=== PATIENT | male | born 1980 | race Caucasian/White ===

== ENCOUNTER 2023-09-09 22:53 | Emergency (ER) | payer OTHER, SELFPAY ==
[2023-09-09 23:07] VITALS: BP 150/101; PULSE 78; RESP 18; TEMP 37.3; O2SAT 98; BMI 35.0
--- NOTE | 2023-09-10 | CT_ITS ---
Patient: LIMA PERES Facility:?[facility] Patient ID:?[id number] Site Patient ID:?[id number]. Site :?[id number] Study:?CT-Abdomen/Pelvis with 100cc abidnv113 contrast-09/10/2023 3:53:57 AM Ordering Physician:Kayla Falcon Final Report: INDICATION: Abdominal pain. Hernia. COMPARISON: None TECHNIQUE: CT examination of the abdomen and pelvis was performed following the uneventful intravenous administration of 100 cc of Isovue 370. Thin section axial images were obtained from the lung bases through the pubic symphysis. Oral contrast was not administered. Please note that all CT scans at this facility use dose modulation, iterative reconstruction, and/or weight-based dosing when appropriate to reduce radiation dose to as low as reasonably achievable. FINDINGS: LUNG BASES: The lung bases as visualized appear normal.The heart size is normal at the lung bases. LIVER/BILIARY SYSTEM:The liver is normal in size and configuration. There is no focal mass and there is no intra- or extra hepatic biliary ductal dilatation.Hepatic steatosis. Contracted but otherwise unremarkable appearing gallbladder ADRENALS: Normal KIDNEYS, URETERS and BLADDER:The kidneys appear normal. No visible mass, calculus or hydronephrosis. The ureters and bladder as visualized appear normal. SPLEEN:Normal appearance. PANCREAS: Appears normal. RETROPERITONEUM and MESENTERY: There is no mass, adenopathy or aortic aneurysm. GASTROINTESTINAL SYSTEM: There is no evidence of diverticulitis, colitis, mechanical obstruction, or appendicitis. The small bowel as visualized appears normal.A few scattered diverticular noted PELVIS: No mass, adenopathy or free fluid. OSSEOUS STRUCTURES and ABDOMINAL WALL: There is an age-appropriate appearance of the osseous structures.There is a tiny fat containing umbilical hernia. There is a ventral hernia to the right of the midline few centimeters above the umbilicus. This contains fat and measures about 6 centimeters in diameter. The fat in this area appears to be inflamed. The defect in the anterior abdominal wall measures about 2.3 centimeters OTHER: No free fluid or free air. IMPRESSION: 1. There is a ventral hernia to the right of the midline in a few centimeters above the umbilicus containing fat only. This appears to be inflamed. The hernia sac measures about 6 centimeters in diameter. The defect in the anterior abdominal wall measures 2.3 centimeters. There is also a very small fat containing umbilical hernia which does not appear to be inflamed. 2. Other incidental chronic appearing findings as discussed above Please note that all CT scans at this facility use dose modulation, iterative reconstruction, and/or weight-based dosing when appropriate to reduce radiation dose to as low as reasonably achievable. Dictated by Matias Hawthorne MD @ 09/10/2023 4:30:48 AM Signed by:?Matias Hawthorne MD @09/10/2023 4:30:48 AM (Electronic Signature)
--- NOTE | 2023-09-10 01:30 | ED.ABDPAIN ---
HPI - Abdominal Pain General Date Seen: 09/10/23 <Dion Carmen MD - Last Filed: 09/10/23 01:33> Chief Complaint: Abdominal Pain <Dion Carmen MD - Last Filed: 09/10/23 01:33> Stated Complaint: Hernia on abdomen, pain <Dion Carmen MD - Last Filed: 09/10/23 01:33> Time Seen by Provider: 09/10/23 01:30 <Dion Carmen MD - Last Filed: 09/10/23 01:33> Source: patient <Dion Carmen MD - Last Filed: 09/10/23 01:33> Mode of arrival: ambulatory <Dion Carmen MD - Last Filed: 09/10/23 01:33> Limitations: no limitations <Dion Carmen MD - Last Filed: 09/10/23 01:33> History of Present Illness HPI narrative: Patient is a 43-year-old gentleman presents here with the a bulge in his abdomen, he has a known hernia just above his umbilicus and over the last couple days it has become more sore, he is worried it may be incarcerated, but he can not push it in fine, couple days previous to this he has been having problems with nausea, and a couple episodes of vomiting, and since then his hernias been more sore. He had a previous 1 fixed, he actually has an appointment to see next week for this. He was able to eat earlier today, a little bit less, he is passing gas, no fevers no chills. <Dion Carmen MD - Last Filed: 09/10/23 01:33> MD elicited complaint: abdominal pain <Dion Carmen MD - Last Filed: 09/10/23 01:33> Related Data Home Medications: Previous Rx's Medication Instructions Recorded citalopram 20 mg tablet (Celexa) 20 mg PO QDAY #90 tabs 07/31/23 losartan 25 mg tablet 25 mg PO QDAY 90 days #90 tabs 08/19/23 <Dion Carmen MD - Last Filed: 09/10/23 01:33> Allergies/Adverse Reactions: Allergies Allergy/AdvReac Type Severity Reaction Status Date / Time No Known Allergies Allergy Verified 05/30/23 08:22 <Dion Carmen MD - Last Filed: 09/10/23 01:33> Review of Systems Status of ROS Reports: 10 or more systems reviewed and unremarkable except as noted in History and below <Dion Carmen MD - Last Filed: 09/10/23 01:33> PFSH PFSH Medical History: Medical History History of alcohol dependence ?F10.21 - Alcohol dependence, in remission (ICD-10) <Dion Carmen MD - Last Filed: 09/10/23 01:33> Surgical History: Surgical History History of hernia repair ?Z98.890 - Other specified postprocedural states (ICD-10) ?Z87.19 - Personal history of other diseases of the digestive system (ICD-10) <Dion Carmen MD - Last Filed: 09/10/23 01:33> Family History: Family History Father Alcohol dependence Mother Anxiety disorder Colonic polyp Depression Maternal Grandfather Bladder cancer Colonic polyp Maternal Grandmother Colon cancer <Dion Carmen MD - Last Filed: 09/10/23 01:33> Social History: Social History Narrative: Tobacco chew use Smoking Status: Current some day smoker Little interest or pleasure in doing things: more than half the days Feeling down, depressed, or hopeless: more than half the days <Dion Carmen MD - Last Filed: 09/10/23 01:33> Exam Narrative: Exam Narrative: On examination he is in no apparent distress very nice gentleman, 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 Bowel sounds are normal there is no organomegaly <Dion Carmen MD - Last Filed: 09/10/23 01:33> Const: Vital Signs, click to edit/add: Vital Signs - 24 hr 09/09/23 23:07 Temperature 99.2 F Pulse Rate [Pulse Oximeter] 78 Respiratory Rate 18 Blood Pressure [Ri ght Upper Arm] 150/101 H Pulse Oximetry 98 Oxygen Delivery Me thod Room Air <Dion Carmen MD - Last Filed: 09/10/23 01:33> Vital Signs, click to edit/add: Vital Signs - 24 hr 09/09/23 23:07 Temperature 99.2 F Pulse Rate [Pulse Oximeter] 78 Respiratory Rate 18 Blood Pressure [Ri ght Upper Arm] 150/101 H Pulse Oximetry 98 Oxygen Delivery Me thod Room Air <Carmelina Tellez MD - Last Filed: 09/10/23 05:30> Documenting provider has reviewed patient's vital signs: yes <Dion Carmen MD - Last Filed: 09/10/23 01:33> Course Course ED Course: Explained him we will get a CT to rule out incarceration of the hernia, and also the size of this will be helpful for DrSheri doing the repair. We also get some blood test. He was comfortable with this <Dion Carmen MD - Last Filed: 09/10/23 01:33> Vital Signs Vital signs: Initial Vital Signs Temperature 99.2 F 09/09/23 23:07 Temperature Source Temporal Artery Scan 09/09/23 23:07 Pulse Rate 78 09/09/23 23:07 Respiratory Rate 18 09/09/23 23:07 Blood Pressure 150/101 H 09/09/23 23:07 Blood Pressure Mean 117 H 09/09/23 23:07 Pulse Oximetry 98 09/09/23 23:07 Oxygen Delivery Method Room Air 09/09/23 23:07 Vital Signs Temperature 99.2 F 09/09/23 23:07 Pulse Rate 78 09/09/23 23:07 Respiratory Rate 18 09/09/23 23:07 Blood Pressure 150/101 H 09/09/23 23:07 Pulse Oximetry 98 09/09/23 23:07 Oxygen Delivery Method Room Air 09/09/23 23:07 Temperature 99.2 F 09/09/23 23:07 Pulse Rate 78 09/09/23 23:07 Respiratory Rate 18 09/09/23 23:07 Blood Pressure 150/101 H 09/09/23 23:07 Pulse Oximetry 98 09/09/23 23:07 Oxygen Delivery Method Room Air 09/09/23 23:07 <Dion Carmen MD - Last Filed: 09/10/23 01:33> Initial Vital Signs Temperature 99.2 F 09/09/23 23:07 Temperature Source Temporal Artery Scan 09/09/23 23:07 Pulse Rate 78 09/09/23 23:07 Respiratory Rate 18 09/09/23 23:07 Blood Pressure 150/101 H 09/09/23 23:07 Blood Pressure Mean 117 H 09/09/23 23:07 Pulse Oximetry 98 09/09/23 23:07 Oxygen Delivery Method Room Air 09/09/23 23:07 Vital Signs Temperature 99.2 F 09/09/23 23:07 Pulse Rate 78 09/09/23 23:07 Respiratory Rate 18 09/09/23 23:07 Blood Pressure 150/101 H 09/09/23 23:07 Pulse Oximetry 98 09/09/23 23:07 Oxygen Delivery Method Room Air 09/09/23 23:07 Temperature 99.2 F 09/09/23 23:07 Pulse Rate 78 09/09/23 23:07 Respiratory Rate 18 09/09/23 23:07 Blood Pressure 150/101 H 09/09/23 23:07 Pulse Oximetry 98 09/09/23 23:07 Oxygen Delivery Method Room Air 09/09/23 23:07 <Carmelina Tellez MD - Last Filed: 09/10/23 05:30> MDM - Abdominal Pain MDM Narrative Medical decision making narrative: During this evaluation of this patient I considered multiple differential diagnosis is which included the life-threatening such as appendicitis, aortic aneurysm, mesenteric ischemia, bowel perforation, volvulus, and bowel obstruction. Other differential diagnosis is include but are not limited to cholecystitis, pancreatitis, hepatitis, gastritis, GERD, diverticulitis, peptic ulcer disease, pyelonephritis/UTI, renal colic/stone, testicular torsion as well as other acute scrotal processes, inflammatory bowel disease, as well as other etiologies <Dion Carmen MD - Last Filed: 09/10/23 01:33> During this evaluation of this patient I considered multiple differential diagnosis is which included the life-threatening such as appendicitis, aortic aneurysm, mesenteric ischemia, bowel perforation, volvulus, and bowel obstruction. Other differential diagnosis is include but are not limited to cholecystitis, pancreatitis, hepatitis, gastritis, GERD, diverticulitis, peptic ulcer disease, pyelonephritis/UTI, renal colic/stone, testicular torsion as well as other acute scrotal processes, inflammatory bowel disease, as well as other etiologies Assessment/plan: Dr. Carmen initially saw patient and I took over patient looking at labs and CT. 1. Ventral hernia-a CT shows fat in the ventral hernia. There is also a small umbilical hernia. Patient is feeling well at this time. Labs reassuring. CT suggest irritation around this area. Patient was vomiting yesterday Vance is feeling better today. Patient agrees that he is feeling better at this time. Previous physician notes easily reducible hernia. 2. Disposition-patient will follow-up with the surgeon as scheduled. In the meantime I would avoid lifting heavy items. Ibuprofen or Tylenol may be used for discomfort. Recommend returning to the ER for vomiting, increasing abdominal pain, of hernia that is unable to be reduced or new symptoms. Patient voices understanding. All questions were answered. <Carmelina Tellez MD - Last Filed: 09/10/23 05:30> Medical Records Attestation: I reviewed the patient's medical records. <Dion Carmen MD - Last Filed: 09/10/23 01:33> Lab Data Attestation: I reviewed the patient's lab results. <Dion Carmen MD - Last Filed: 09/10/23 01:33> Lab results narrative: White count slightly elevated 11.3. Hemoglobin 16.2 and platelets are 304,000. Comprehensive panel within normal limits with potassium of 4.0, creatinine of 0.7. LFTs within normal limits. CRP within normal limits. <Carmelina Tellez MD - Last Filed: 09/10/23 05:30> Imaging Data CT scan - abdomen: Attestation: I have reviewed the pertinent imaging results. <Carmelina Tellez MD - Last Filed: 09/10/23 05:30> Radiologist's impression: LUNG BASES: The lung bases as visualized appear normal.The heart size is normal at the lung bases. LIVER/BILIARY SYSTEM:The liver is normal in size and configuration. There is no focal mass and there is no intra- or extra hepatic biliary ductal dilatation.Hepatic steatosis. Contracted but otherwise unremarkable appearing gallbladder ADRENALS: Normal KIDNEYS, URETERS and BLADDER:The kidneys appear normal. No visible mass, calculus or hydronephrosis. The ureters and bladder as visualized appear normal. SPLEEN:Normal appearance. PANCREAS: Appears normal. RETROPERITONEUM and MESENTERY: There is no mass, adenopathy or aortic aneurysm. GASTROINTESTINAL SYSTEM: There is no evidence of diverticulitis, colitis, mechanical obstruction, or appendicitis. The small bowel as visualized appears normal.A few scattered diverticular noted PELVIS: No mass, adenopathy or free fluid. OSSEOUS STRUCTURES and ABDOMINAL WALL: There is an age-appropriate appearance of the osseous structures.There is a tiny fat containing umbilical hernia. There is a ventral hernia to the right of the midline few centimeters above the umbilicus. This contains fat and measures about 6 centimeters in diameter. The fat in this area appears to be inflamed. The defect in the anterior abdominal wall measures about 2.3 centimeters OTHER: No free fluid or free air. IMPRESSION: 1. There is a ventral hernia to the right of the midline in a few centimeters above the umbilicus containing fat only. This appears to be inflamed. The hernia sac measures about 6 centimeters in diameter. The defect in the anterior abdominal wall measures 2.3 centimeters. There is also a very small fat containing umbilical hernia which does not appear to be inflamed. 2. Other incidental chronic appearing findings as discussed above <Carmelina Tellez MD - Last Filed: 09/10/23 05:30> Discharge Plan Discharge Prescriptions: No Action citalopram [Celexa] 20 mg tablet 20 mg PO QDAY Qty: 90 1RF Rx Instructions: 10 mg daily x 2 weeks and then increase to 20 mg daily losartan 25 mg tablet 25 mg PO QDAY 90 Days Qty: 90 0RF <Dion Carmen MD - Last Filed: 09/10/23 01:33> Follow Up/Referrals: Shanda Mckeon, PHYSICIAN OFFICE SPECIALIST, WAVE SOLDERING MACHINE OPERATOR [Primary Care Provider] - <Dion Carmen MD - Last Filed: 09/10/23 01:33>
[2023-09-10 02:42] VITALS: O2SAT 99
[2023-09-10] MEDS: 0.9 % SODIUM CHLORIDE 1000 ml 1,000 ML IV (02:42)
[2023-09-10 04:50] VITALS: BP 135/84; PULSE 69; RESP 18; TEMP 36.9
[2023-09-10 05:40] VITALS: BP 135/84; PULSE 69; RESP 18; TEMP 36.9; O2SAT 99
[2023-09-10 05:58] LABS: Basophils Percent Auto 0.2 % (0.0-3.0); Eosinophils Percent Auto 0.5 % (0.0-7.0); Hematocrit 46.5 % (37.0-53.0); Hemoglobin* 16.2 gm/dL (13.5-17.5); Lymphocytes Percent Auto 22.4 % (20-44); Mean Corpuscular HGB Conc 35 gm/dL (32-36); Mean Corpuscular Hemoglobin 31 pg (26-34); Mean Corpuscular Volume 87 fL (80-100); Monocytes Percent Auto 6.9 % (0.0-11.0); Neutrophils Percent Auto 69.4 % (42.0-72.0); Platelet Count* 304 K/uL (140-440); Red Blood Count 5.32 m/uL (4.30-5.90); Slide Review Reflex No
[2023-09-10 05:59] LABS: Anion Gap 9 mEq/L (7-15); Blood Urea Nitrogen* 14 mg/dL (5-24); Carbon Dioxide* 22 mmol/L (20-32); Chloride* 106 mmol/L (96-114); Sodium* 137 mmol/L (135-149)
[2023-09-10 06:00] LABS: C Reactive Protein* 0.6 mg/dL (0.5-1.0); Calcium* 9.4 mg/dL (8.4-10.6); Creatinine* 0.7 mg/dL (0.5-1.5); Est. Creatinine Clearance* 131.64; Estimated Glomerular Filt Rate 117 ml/min; Glucose* 117 mg/dL (60-115)
== END 2023-09-10 04:50 | disposition home or self-care (01) ==
PROVIDERS: Emergency Provider Family Medicine; PCP Nurse Practitioner Family
DX: K43.9 Ventral hernia without obstruction or gangrene (principal)
CPT/HCPCS: 36415; 74177; 80048; 85025; 86140; 94761; 95992; 99284; J7030; Q9967

== ENCOUNTER 2023-09-12 09:58 | Outpatient (CLI) | payer OTHER, SELFPAY | END 2023-09-12 09:59 | disposition home or self-care (01) | LOC: NFLDREF 09-13 02:16 | PROVIDERS: PCP Nurse Practitioner Family; Referring Provider Nurse Practitioner Family; Visit Provider Nurse Practitioner Family | DX: R10.9 Unspecified abdominal pain (principal); R11.0 Nausea; K43.9 Ventral hernia without obstruction or gangrene; D72.829 Elevated white blood cell count, unspecified | CPT/HCPCS: 87086 ==

== ENCOUNTER 2023-10-16 08:49 | Outpatient (CLI) | payer OTHER, SELFPAY | END 2023-10-16 08:50 | disposition home or self-care (01) | PROVIDERS: PCP Nurse Practitioner Family; Visit Provider Nurse Practitioner Family | DX: Z01.818 Encounter for other preprocedural examination (principal) | CPT/HCPCS: 80048; 85025 ==

== ENCOUNTER 2023-10-30 06:11 | Day surgery (SDC) | payer OTHER, SELFPAY ==
[2023-10-30] VITALS (13 sets, daily range): BP systolic 125–147; BP diastolic 67–99; PULSE 62–89; RESP 16; TEMP 36.3–36.6; O2SAT 92–98; BMI 37.1
[2023-10-30] MEDS: SODIUM CHLORIDE 0.9 % (FLUSH) 10 ML SYRINGE IVF (06:25)
[2023-10-30] MEDS: LACTATED RINGERS 1000 ML 1,000 ML 100 ML IV (06:25)
[2023-10-30] MEDS: CEFAZOLIN 2 GM INJ IVP (07:56)
[2023-10-30] MEDS: BUPIVACAINE 0.5% 30 ML INJECTION (08:45)
[2023-10-30] MEDS: LIDOCAINE 1% MDV 20 ML INJECTION (08:45)
--- NOTE | 2023-10-30 09:06 | W.ANESCHARGE ---
Anesthesia Charges Start Date/Time Anesthesia Start Date: 10/30/23 Anesthesia Start Time: 07:36 Stop Date/Time Anesthesia Stop Date: 10/30/23 Anesthesia Stop Time: 09:06
--- NOTE | 2023-10-30 09:29 | PM.GSPRC ---
Operative Note Date of procedure: 10/30/23 Pre-op diagnosis: 1. Incarcerated epigastric hernia 2. Desire for permanent sterilization Post-op diagnosis: Same Type of Procedure: 1. Repair incarcerated 2 cm epigastric hernia with mesh 2. Vasectomy Indications: The patient is a 43-year-old male with an epigastric hernia which is increasingly symptomatic. He also desires permanent sterility. After discussion, he agreed to proceed with hernia repair as well as vasectomy at the same time under anesthesia. Procedure Description: After discussing the risks and benefits of the procedure, the patient signed informed consent.? The operative site was marked and the patient was brought to the operating room and placed on the operating table in supine position.? Care was taken to pad the patient's pressure points.?? The patient was then intubated by anesthesia.?? The operative site was then prepped and draped in the usual sterile fashion.? A time-out was then performed. Local anesthetic was injected into the fascia, skin and subcutaneous tissues. A midline incision was made over the palpable bulge in the epigastric region. Dissection was carried down into the subcutaneous tissue using cautery. The hernia sac was encountered and care was taken to not enter it. Dissection was taken down to the fascia. Once the hernia sac was dissected out circumferentially, it was able to be reduced. The hernia was 2 cm in size and so the decision was made to use a piece of mesh. A preperitoneal pocket was created using a combination of blunt dissection and cautery. Hemostasis appeared adequate. Once the posterior fascia was clear, a piece of medium Ventralex ST hernia mesh was placed in the preperitoneal space with care to ensure that it laid flat. This was secured into place using 2 0 PDS interrupted sutures. The tails were then trimmed and the fascia was then closed with 0 Nurolon suture in a [id number] fashion. The skin was then closed with running absorbable suture. Glue was then applied. Attention was then turned to performing the vasectomy. The scrotum and penis were prepped with Betadine and draped. I began on the right side. The spermatic cord was grasped and the vas deferens isolated. 1% lidocaine was injected into the scrotal skin and around the vas deferens. Once the skin was anesthetized, a stab incision was made overlying the vas. Blunt dissection was taken down to the vas. The vas deferens was then grasped and pulled out of the incision. Careful dissection was then done to isolate a 3 cm segment of vas deferens from the surrounding blood vessels and tissue. Once this was done the vas was clipped proximally and distally and sharply transected with scissors. The end was also cauterized. The portion of vas was passed off for pathology. The wound was examined for hemostasis which was adequate. The same procedure was then performed on the left, again isolating a 3 cm segment of vas deferens and sending for pathology. Gauze dressings were then applied. The patient was then woken and transported to the recovery area in stable condition. ? The patient tolerated the procedure well. Findings: 2 cm fat containing incarcerated epigastric hernia Anesthesia: GETA Surgeon: Rebecca Hull MD Estimated blood loss (mL): 5 Specimen: Other Additional Specimen Information: 1. Right vas deferens 2. Left vas deferens Condition: stable Disposition: PACU
[2023-10-30] MEDS: HYDROCODONE-ACETAMIN 5-325 MG 1 TAB PO (10:45)
--- NOTE | 2023-10-30 12:27 | W.ANESCHARGE ---
Anesthesia Charges Start Date/Time Anesthesia Start Date: 10/30/23 Anesthesia Start Time: 07:36 Stop Date/Time Anesthesia Stop Date: 10/30/23 Anesthesia Stop Time: 09:06
== END 2023-10-30 11:11 | disposition home or self-care (01) ==
PROVIDERS: PCP Nurse Practitioner Family; Visit Provider Surgery
PROC: (CPT 49592; principal; 2023-10-30 07:30)
PROC: (CPT 55250; 2023-10-30 07:30)
DX: K43.6 Other and unspecified ventral hernia with obstruction, without gangrene (principal); Z30.2 Encounter for sterilization
CPT/HCPCS: 49592; 55250; 00750; 88302; A9270; C1781; J0665; J0690; J1100; J1885; J2405; J2704; J2710; J3010; J7120

== ENCOUNTER 2024-04-27 08:14 | Outpatient (CLI) | payer OTHER, SELFPAY | END 2024-04-27 08:15 | disposition home or self-care (01) | PROVIDERS: PCP Nurse Practitioner Family; Visit Provider Nurse Practitioner Family | DX: Z00.00 Encounter for general adult medical examination without abnormal findings (principal); E78.5 Hyperlipidemia, unspecified; I10 Essential (primary) hypertension; R73.9 Hyperglycemia, unspecified; F41.9 Anxiety disorder, unspecified | CPT/HCPCS: 80053; 80061; 83036; 85025 ==

== ENCOUNTER 2024-06-09 19:34 | Outpatient (CLI) | payer OTHER, SELFPAY ==
--- NOTE | 2024-06-29 08:54 | W.PM.SLEEP ---
Sleep Study Details Details Interpreting Provider: Omaira Date of Sleep Study: 06/09/24 Sleep Study Details: STUDY TYPE:? Home unattended ? BMI:? 36.5 ORDERING PROVIDER:Lucía Castano INDICATION:? Concern about sleep apnea ? SLEEP SUMMARY:? 397.4 minutes monitored RESPIRATORY SUMMARY:? AHI 18.4, left lateral 8.7, supine 26, right lateral 14.7 Low oxygen 83 0.9% of study oxygen less than 90% Snoring 100% PERIODIC LIMB MOVEMENTS OF SLEEP:? Not recorded CARDIAC:? Range 51-95, mean 73.2 beats per minute IMPRESSION:? Moderate obstructive sleep apnea with supine position dependency RECOMMENDATION: Treatment options include weight loss, CPAP, dental appliance.
== END 2024-06-09 19:35 | disposition home or self-care (01) ==
LOC: SLEEP 19:35
PROVIDERS: PCP Nurse Practitioner Family; Visit Provider Otolaryngology
DX: G47.33 Obstructive sleep apnea (adult) (pediatric) (principal)
CPT/HCPCS: 95806

== ENCOUNTER 2025-07-14 10:58 | Outpatient (CLI) | payer BC, SELFPAY | END 2025-07-14 10:59 | disposition home or self-care (01) | PROVIDERS: PCP Nurse Practitioner Family; Visit Provider Nurse Practitioner Family | DX: I10 Essential (primary) hypertension (principal); E78.5 Hyperlipidemia, unspecified; Z13.0 Encounter for screening for diseases of the blood and blood-forming organs and certain disorders involving the immune mechanism | CPT/HCPCS: 80053; 80061; 85025 ==